=== PATIENT | male | born 1935 | race Caucasian/White ===

== ENCOUNTER 2017-03-08 14:02 | Inpatient (IN) | payer BC, OTHER ==
[~2017-03-08] VITALS: Ht 182.9 cm; Wt 84.4 kg
[2017-03-08] VITALS (19 sets, daily range): BP systolic 90–117; BP diastolic 50–75
--- NOTE | 2017-03-08 14:15 | NUR ---
BB CAREGIVER, PT BECAME COMBATIVE AND REFUSED TO GO TO DIALYSIS. A/O X 1. BREATHING EVEN AND UNLABORED. NO SOB. VITALS STABLE. SAFETY AND COMFORT MEASURES IN PLACE. AWAITING MD ORDERS.
[2017-03-08] MEDS ORDERED: HYDR-552 PO (15:12)
[2017-03-08] MEDS ORDERED: LORA0.5T PO (15:12)
[2017-03-08] MEDS ORDERED: VIT1TABL46 PO (15:12)
[2017-03-08] MEDS ORDERED: ACAR25TA2 PO (15:12)
[2017-03-08] MEDS ORDERED: LOVA20TA2 PO (15:12)
[2017-03-08] MEDS ORDERED: TAMS-12 PO (15:12)
[2017-03-08] MEDS ORDERED: METO25TA6 PO (15:12)
[2017-03-08] MEDS ORDERED: ASPI81TA2 PO (15:12)
--- NOTE | 2017-03-08 15:30 | NUR ---
NEW IV STARTED ON LFA, 20 G. BLOOD DRAWN AND SENT TO LAB.
[2017-03-08 15:38] LABS: BASOPHILS # (AUTO) 0.1 /CMM (0.0-0.2); EOSINOPHILS # (AUTO) 0.1 /CMM (0.0-0.7); EOSINOPHILS % (AUTO) 0.8 % (0.0-6.0); HEMATOCRIT 33 % (39-51); HEMOGLOBIN 10.5 g/dL (13.5-17.5); LYMPHOCYTES # (AUTO) 1.1 /CMM (0.8-4.8); LYMPHOCYTES % (AUTO) 17.3 % (20.0-44.0); MEAN CORPUSCULAR HEMOGLOBIN 30 PG (26.0-33.0); MEAN CORPUSCULAR HGB CONC 32 g/dl (31.0-36.0); MEAN CORPUSCULAR VOLUME 94 fL (80-96); MONOCYTES # (AUTO) 0.6 /CMM (0.1-1.30); MONOCYTES % (AUTO) 8.8 % (2.0-12.0); NEUTROPHILS # (AUTO) 4.4 /CMM (1.8-8.9); NEUTROPHILS % (AUTO) 72.1 % (43.0-81.0); PLATELET COUNT (AUTO) 135 /CMM (150-450); RDW COEFFICIENT OF VARIATION 21.1 (11.5-15.0); RED BLOOD CELL COUNT(AUTO) 3.51 MIL/uL (4.5-6.0); WHITE BLOOD COUNT (AUTO) 6.3 K/uL (4.3-11.0)
[2017-03-08 15:49] LABS: INR 1.06 (0.87-1.13)
[2017-03-08 15:54] LABS: TROPONIN I 0.221 ng/mL (0.00-0.056)
--- NOTE | 2017-03-08 15:55 | NUR ---
CONTINUOUS IMPROVEMENT SPECIALIST AT BEDSIDE.
[2017-03-08 15:58] LABS: ALANINE AMINOTRANSFERASE 11 U/L (12-78); ALBUMIN 2.7 g/dL (3.4-5.0); ALKALINE PHOSPHATASE 77 U/L (46-116); ASPARTATE AMINOTRANSFERASE 14 U/L (15-37); BILIRUBIN,DIRECT 0.1 mg/dL (0.0-0.2); BILIRUBIN,TOTAL 0.4 mg/dL (0.2-1.0); SODIUM SERUM 136 mmol/L (136-145); TOTAL PROTEIN, SERUM 6.2 g/dL (6.4-8.2)
[2017-03-08 15:59] LABS: CALCIUM, SERUM 8.7 mg/dL (8.5-10.1); CARBON DIOXIDE 28 mmol/L (21-32); CHLORIDE 98 mmol/L (98-107); CREATININE 4.9 mg/dL (0.6-1.3); GLUCOSE 121 mg/dL (74-106); UREA NITROGEN, BLOOD 35 mg/dL (7-18)
[2017-03-08] MEDS ORDERED: ASPIRIN 81 MG TAB.CHEW ONE (16:10)
[2017-03-08 16:12] LABS: ABG BASE EXCESS 0.9 mmol/L; ABG OXYGEN SATURATION 48.7 % (92.0-98.5); ABG PCO2 63.8 mmHg (35.0-45.0); ABG PH 7.274 (7.350-7.450); ABG PO2 30.2 mmHg (75.0-100.0); COHb 0.6 % (0.5-1.5); MetHb 0.9 % (0.0-1.5); SITE, ABG Left Radial; VENT MODE, BG 4L N/C
[2017-03-08] MEDS ORDERED: ASPIRIN 81 MG TAB.CHEW PO ONE (16:30)
[2017-03-08] MEDS ORDERED: NTG 50 MG/D5W250 ML BOTTL 250 ML IV ONE (16:30)
--- NOTE | 2017-03-08 16:30 | NUR ---
PT PLACED ON BIPAP PER MD ORDER. SETTINGS PRESCRIBED 24/08 RR 12 50%. ALARMS SET PER PROTOCOL AND AUDIBLE. BIPAP PLUGGED IN TO RED OUTLET. AMBU BAG AT BED SIDE. GEAR SHAVER SET UP OPERATOR AT BED SIDE. NO DISTRESS NOTED WILL CONTINUE TO MONITOR.
--- NOTE | 2017-03-08 16:34 | NUR ---
PT IS IN TOO MUCH PAIN, UNABLE TO STAY STILL FOR CT SCAN. ER WILL CALL WHEN READY.
--- NOTE | 2017-03-08 16:38 | NUR ---
RT NOTE PT PLACED ON BIPAP PER MD ORDER. SETTINGS PRESCRIBED 24/08 RR 12 50%. ALARMS SET PER PROTOCOL AND AUDIBLE. BIPAP PLUGGED IN TO RED OUTLET. AMBU BAG AT BED SIDE. ROBOTICS SPECIALIST AT BED SIDE. NO DISTRESS NOTED WILL CONTINUE TO MONITOR. Addendum: 03/08/17 at 1639 by DEANN MOSS RT Amended: Links added.
[2017-03-08] MEDS ORDERED: MIDAZOLAM HCL 2 MG/2ML VIAL IV ONE (17:00)
[2017-03-08] MEDS ORDERED: MIDAZOLAM HCL 2 MG/2ML VIAL ONE (17:16)
--- NOTE | 2017-03-08 17:23 | NUR ---
PATIENT MEDICATED PER MD ORDERS, THEN TAKEN TO CT VIA STRETCHER.
--- NOTE | 2017-03-08 17:37 | NUR ---
PATIENT RETURNED FROM CT IN STABLE CONDITION, HOWEVER UNABLE TO PERFORM CT D/T PATIENT STILL MOVING AROUND DESPITE MEDICATION. INFORMED.
--- NOTE | 2017-03-08 18:21 | NUR ---
NITRO DRIP NOT ADMINISTERED D/T LOW BP, DR. HERNANDEZ INFORMED AND AGREES TO HOLD AT THIS TIME.
--- NOTE | 2017-03-08 19:06 | NUR ---
CALLED DR DAY, ON THE PHONE WITH DR LAWSON
--- NOTE | 2017-03-08 19:12 | NUR ---
CALLED [facility] , [employer] REGIST[employer]AR WAS PAGED.
--- NOTE | 2017-03-08 19:24 | NUR ---
REPORT GIVEN TO YIN ABURTO FOR ADMISSION TO ICU.
--- NOTE | 2017-03-08 19:32 | NUR ---
PATIENT TRANSPORTED TO ICU, 251 VIA ACLS PROTOCOL FOR ADMISSION. RNYIN TO PROVIDE RASHEEDA.
--- NOTE | 2017-03-08 20:00 | NUR ---
government affairs fellow - pt admitted to icu for respiratory failure, pt on bipap, pt is hd pt missed hd today because he became combative and and started having sob. pt is altered, confused. pt is in sr/st, pt has generalized edema. will do abg. dr busby at bedside. pt voiding in diaper. pt has skin issues on the legs, wound consult ordered. pt has r chest wall hd cath and l forearm 20g. pt has caregiver viky [phone], and sister julio dpoa [phone]. will continue to monitor
[2017-03-08] MEDS ORDERED: DEXTROSE 50%-WATER 50 ML DISP.SYRIN IV PRN (20:30)
[2017-03-08] MEDS ORDERED: INSULIN REGULAR, HUMAN 100 UNIT/ML 3 ML VIAL SQ PRN (20:30)
[2017-03-08 20:33] LABS: ABG BASE EXCESS -2.5 mmol/L; ABG OXYGEN SATURATION 91.1 % (92.0-98.5); ABG PCO2 44.3 mmHg (35.0-45.0); ABG PH 7.339 (7.350-7.450); ABG PO2 68.8 mmHg (75.0-100.0); AaDO2 27.9 mmHg; COHb 0.6 % (0.5-1.5); MetHb 0.4 % (0.0-1.5); O2Hb 90.2 % (94.0-97.0); SITE, ABG Right Radial; VENT MODE, BG RA
[2017-03-08] MEDS ORDERED: FUROSEMIDE 20 MG/2 ML VIAL IV SCH (21:00)
[2017-03-08] MEDS: HEPARIN SODIUM, PORCINE 5000 UNITS/1 ML VIAL SQ SCH (21:20)
[2017-03-08] MEDS: ATORVASTATIN 10 MG TABLET PO SCH (21:22)
[2017-03-08] MEDS: PIPERACILLIN /TAZOBACTAM 2.25 G in IV D5W 50 ML IV SCH (21:22)
[2017-03-08] MEDS: PANTOPRAZOLE 40 MG TABLET.DR PO SCH (21:24)
[2017-03-08] MEDS: ASPIRIN 81 MG TAB.CHEW PO SCH (21:24)
[2017-03-08] MEDS: BLOOD SUGAR DIAGNOSTIC 1 EACH STRIP IN SCH (21:46)
[2017-03-08] MEDS ORDERED: TAMSULOSIN 0.4 MG CAP.SR.24H PO SCH (22:00)
--- NOTE | 2017-03-08 22:00 | NUR ---
rivero catheter inserted, clear norman urine out
[2017-03-08] MEDS: HYDROCODONE/APAP 5/325MG 1 EACH TABLET PO PRN (23:46)
[2017-03-09] VITALS (63 sets, daily range): BP systolic 74–101; BP diastolic 23–71
--- NOTE | 2017-03-09 | NUR ---
hd done 2L out. pt still alert, bp marginal
[2017-03-09 01:44] LABS: APPEARANCE,URINE CLOUDY (CLEAR); BILIRUBIN,URINE NEGATIVE (NEGATIVE); BLOOD, URINE NEGATIVE Ery/uL (NEGATIVE); COLOR,URINE DARK YELLO (YELLOW); KETONES,URINE NEGATIVE (NEGATIVE); LEUKOCYTE ESTERASE ,URINE NEGATIVE (NEGATIVE); NITRITE, URINE NEGATIVE (NEGATIVE); PROTEIN,URINE 2+ mg/dl (NEGATIVE); UGLUCOSE NEGATIVE (NEGATIVE); UROBILINOGEN,URINE 0.2 EU/dL (0.2)
[2017-03-09 01:50] LABS: BACTERIA,URINE Few /HPF (None Seen); RBC,URINE 0-2 /HPF (0-2); SQUAMOUS EPITHELIAL CELL,UR Few /HPF (None Seen); URINE AMORPHOUS URATE Many /HPF (None Seen)
--- NOTE | 2017-03-09 02:47 | NUR ---
dr busby called regarding pt low bp, he ordered midodrine 10 mg now and 5 mg bid. will carry out orders and continue to monitor
[2017-03-09] MEDS ORDERED: MIDODRINE HCL (5MG) 5 MG TABLET PO SCH (03:00)
[2017-03-09] MEDS ORDERED: MIDODRINE HCL (5MG) 5 MG TABLET PO ONE (03:00)
--- NOTE | 2017-03-09 04:00 | NUR ---
left upper arm 20g iv started, flushing well, patent
[2017-03-09 04:55] LABS: BASOPHILS % (AUTO) 0.5 % (0.0-2.0); EOSINOPHILS % (AUTO) 0.7 % (0.0-6.0); HEMATOCRIT 34 % (39-51); HEMOGLOBIN 10.9 g/dL (13.5-17.5); LYMPHOCYTES # (AUTO) 1.1 /CMM (0.8-4.8); MEAN CORPUSCULAR HEMOGLOBIN 31 PG (26.0-33.0); MEAN CORPUSCULAR HGB CONC 33 g/dl (31.0-36.0); MEAN CORPUSCULAR VOLUME 95 fL (80-96); MONOCYTES # (AUTO) 0.6 /CMM (0.1-1.30); MONOCYTES % (AUTO) 8.4 % (2.0-12.0); NEUTROPHILS # (AUTO) 5.3 /CMM (1.8-8.9); NEUTROPHILS % (AUTO) 74.4 % (43.0-81.0); PLATELET COUNT (AUTO) 110 /CMM (150-450); RDW COEFFICIENT OF VARIATION 21.2 (11.5-15.0); RED BLOOD CELL COUNT(AUTO) 3.52 MIL/uL (4.5-6.0)
[2017-03-09 05:03] LABS: INR 1.09 (0.87-1.13); PROTHROMBIN TIME 11.3 SECS (9.5-12.7)
[2017-03-09 05:04] LABS: ALANINE AMINOTRANSFERASE 14 U/L (12-78); ALBUMIN 2.5 g/dL (3.4-5.0); ALKALINE PHOSPHATASE 78 U/L (46-116); ASPARTATE AMINOTRANSFERASE 12 U/L (15-37); BILIRUBIN,TOTAL 0.6 mg/dL (0.2-1.0); CALCIUM, SERUM 8.6 mg/dL (8.5-10.1); CARBON DIOXIDE 25 mmol/L (21-32); CHLORIDE 101 mmol/L (98-107); CREATININE 4.8 mg/dL (0.6-1.3); GLUCOSE 122 mg/dL (74-106); POTASSIUM 4.2 mmol/L (3.5-5.1); SODIUM SERUM 138 mmol/L (136-145); TOTAL PROTEIN, SERUM 6.1 g/dL (6.4-8.2); UREA NITROGEN, BLOOD 35 mg/dL (7-18)
[2017-03-09] MEDS: PIPERACILLIN /TAZOBACTAM 2.25 G in IV D5W 50 ML IV SCH ×3 (05:20→21:09)
[2017-03-09] MEDS: HYDROCODONE/APAP 5/325MG 1 EACH TABLET PO PRN ×2 (06:30→12:25)
[2017-03-09] MEDS: BLOOD SUGAR DIAGNOSTIC 1 EACH STRIP IN SCH ×4 (08:21→21:37)
[2017-03-09] MEDS: ASPIRIN 81 MG TAB.CHEW PO SCH (08:22)
[2017-03-09] MEDS: PANTOPRAZOLE 40 MG TABLET.DR PO SCH (08:22)
[2017-03-09] MEDS: MIDODRINE HCL (5MG) 5 MG TABLET PO SCH ×2 (08:22→17:20)
[2017-03-09] MEDS: HEPARIN SODIUM, PORCINE 5000 UNITS/1 ML VIAL SQ SCH ×3 (08:24→21:09)
[2017-03-09] MEDS: INSULIN DETEMIR 100 UNIT/ML CARTRIDGE SQ SCH (08:25)
[2017-03-09 08:31] LABS: THYROID STIMULATING HORMONE 3.772 uIU/mL (0.358-3.74)
[2017-03-09 08:32] LABS: MAGNESIUM 2.5 mg/dL (1.8-2.4); PHOSPHORUS 6.3 mg/dL (2.5-4.9); TROPONIN I 0.16 ng/mL (0.00-0.056)
--- NOTE | 2017-03-09 12:00 | NUR ---
Wound care consult completed. Wound care performed per wound care nurse recommendations.
[2017-03-09] MEDS: CADEXOMER IODINE 40 GM TUBE TP SCH (12:20)
[2017-03-09] MEDS: SEVELAMER CARBONATE 800 MG TABLET PO SCH ×2 (12:26→17:19)
--- NOTE | 2017-03-09 12:49 | NUR ---
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 PT NOTED TO HAVE 4+ PITTING EDEMA TO TRUNK OF BODY, THIGHS AND ARMS WITH WEEPING EDEMA. LOWER LEGS ARE RED, WARM WITH WEEPING EDEMA AND OPEN AREAS, PRESENT ON ADMISSION. RECOMMENDATIONS MADE FOR SKIN PROTECTION AND WOUND CARE. IODOSORB GEL ORDERED BY MD FOR LOWER EXTREMITIES. ALL SKIN PROTECTION AND WOUND RECOMMENDATIONS DISCUSSED WITH NURSING STAFF. FIRST STEP MATTRESS ORDERED. WILL SEE PRN. MD IN AGREEMENT WITH PLAN OF CARE.
[2017-03-09] MEDS ORDERED: Z GUARD REMEDY 2 OZ OINT TP PRN (13:00)
[2017-03-09] MEDS ORDERED: HYDROGEL DRESSING 90 GM TUBE TP PRN (13:00)
[2017-03-09] MEDS ORDERED: ALBUMIN 25% 25 GM in PREMIX 1 EA IV ONE (14:00)
--- NOTE | 2017-03-09 14:10 | NUR ---
Thoracentesis completed. 1600 ml of clear yellow fluid obtained. Lung sounds clear bilat. CXR obtained.
--- NOTE | 2017-03-09 14:15 | NUR ---
HD initiated, albumin administered by hd nurse.
--- NOTE | 2017-03-09 14:40 | NUR ---
Pt. aox3, bp runs in 80th, positional, pt denies any symptoms of hypotension, md aware.
[2017-03-09] MEDS: HYDROGEL DRESSING 90 GM TUBE TP SCH (17:24)
[2017-03-09] MEDS: Z GUARD REMEDY 2 OZ OINT TP SCH (17:24)
--- NOTE | 2017-03-09 17:30 | NUR ---
HD completed, vss, 1800 ml off, pt placed on kci matrass, full bed/bath/ skin care.
--- NOTE | 2017-03-09 20:00 | NUR ---
FERRY TERMINAL SUPERVISOR - NOTES - PT RECEIVED IN BED, ASLEEP. PT IS IN SR/ST, WITH GENERALIZED WEEPING EDEMA. PT IS ON 2L NC. PT HAD HD TODAY 1800 ML OUT, AND A THORACENTESIS OF THE RIGHT LUNG 1600 ML OUT. PT IS ON ACCUCHECK ACHS. PT HAS LEFT FORE ARM 20G AND LEFT UPPER ARM 20G, AND RIGHT CHEST WALL CATHETER. MULTIPLE SKIN ISSUES NOTED, WOUND TREATMENT WILL BE DONE PER ORDER. WILL CONTINUE TO MONITOR
--- NOTE | 2017-03-09 20:20 | NUR ---
DR DAY CALLED REGARDING PT LOW BLOOD PRESSURE, PT BASELINE BP IS ON THE LOW SIDE, DR DAY ORDERED TO CHANGE DOSE OF MIDODRINE TO 10 MG
--- NOTE | 2017-03-09 21:00 | NUR ---
PT CONFUSED, TRYING TO GET OUT OF BED, KCI REMOVED TO PREVENT PT FROM FALLING, WILL PLACE PT ON ISOFLEX BED.
[2017-03-09] MEDS: ATORVASTATIN 10 MG TABLET PO SCH (21:08)
[2017-03-10] VITALS (26 sets, daily range): BP systolic 78–107; BP diastolic 44–73
--- NOTE | 2017-03-10 02:00 | NUR ---
PT PULLED OUT IV, AND WANTS TO GET OUT OF BED, EVEN THOUGH HE CANNOT WALK. PT IS CONFUSED. BLOOD SUGAR WAS 56, PT WAS GIVEN ORANGE JUICE AND CRANBERRY JUICE, NOW BLOOD SUGAR IS 82. 2 NEW IVS PLACED IN LEFT FOREARM 20G AND LEFT FOREARM 22G. PT GIVEN FULL BED BATH, ALL LINENS CHANGED, PT MOVED TO ISOFLEX BED TO PREVENT FALLS AND PROTECT FROM PRESSURE SORES.
[2017-03-10 04:37] LABS: EOSINOPHILS % (AUTO) 0.2 % (0.0-6.0); HEMATOCRIT 34 % (39-51); HEMOGLOBIN 10.9 g/dL (13.5-17.5); LYMPHOCYTES # (AUTO) 1.2 /CMM (0.8-4.8); LYMPHOCYTES % (AUTO) 17.5 % (20.0-44.0); MEAN CORPUSCULAR HEMOGLOBIN 31 PG (26.0-33.0); MEAN CORPUSCULAR HGB CONC 32 g/dl (31.0-36.0); MEAN CORPUSCULAR VOLUME 96 fL (80-96); MONOCYTES # (AUTO) 0.6 /CMM (0.1-1.30); MONOCYTES % (AUTO) 8.7 % (2.0-12.0); NEUTROPHILS # (AUTO) 4.9 /CMM (1.8-8.9); NEUTROPHILS % (AUTO) 73.6 % (43.0-81.0); PLATELET COUNT (AUTO) 120 /CMM (150-450); RDW COEFFICIENT OF VARIATION 22.4 (11.5-15.0); RED BLOOD CELL COUNT(AUTO) 3.51 MIL/uL (4.5-6.0); WHITE BLOOD COUNT (AUTO) 6.6 K/uL (4.3-11.0)
[2017-03-10 05:05] LABS: TROPONIN I 0.141 ng/mL (0.00-0.056)
[2017-03-10] MEDS: PIPERACILLIN /TAZOBACTAM 2.25 G in IV D5W 50 ML IV SCH ×2 (05:09→13:00)
[2017-03-10 05:11] LABS: ALANINE AMINOTRANSFERASE 18 U/L (12-78); ALBUMIN 2.8 g/dL (3.4-5.0); ALKALINE PHOSPHATASE 71 U/L (46-116); ASPARTATE AMINOTRANSFERASE 11 U/L (15-37); BILIRUBIN,TOTAL 0.6 mg/dL (0.2-1.0); CALCIUM, SERUM 8.9 mg/dL (8.5-10.1); CARBON DIOXIDE 29 mmol/L (21-32); CHLORIDE 105 mmol/L (98-107); CREATININE 4.2 mg/dL (0.6-1.3); GLUCOSE 75 mg/dL (74-106); MAGNESIUM 2.4 mg/dL (1.8-2.4); PHOSPHORUS 5.2 mg/dL (2.5-4.9); POTASSIUM 4.2 mmol/L (3.5-5.1); SODIUM SERUM 142 mmol/L (136-145); TOTAL PROTEIN, SERUM 6.2 g/dL (6.4-8.2); UREA NITROGEN, BLOOD 26 mg/dL (7-18)
[2017-03-10] MEDS: HYDROCODONE/APAP 5/325MG 1 EACH TABLET PO PRN ×2 (05:15→16:58)
[2017-03-10] MEDS: BLOOD SUGAR DIAGNOSTIC 1 EACH STRIP IN SCH ×3 (07:50→17:30)
--- NOTE | 2017-03-10 08:00 | NUR ---
MO AOX1, CONFUSED AND ANXIOUS AT TIMES. WAS ABLE TO TAKE MEDICATIONS WITH APPLE SOUSE, AND 100% OF BREAKFAST TRAY WITH MINIMAL HELP.
[2017-03-10] MEDS: PANTOPRAZOLE 40 MG TABLET.DR PO SCH (08:02)
[2017-03-10] MEDS: HEPARIN SODIUM, PORCINE 5000 UNITS/1 ML VIAL SQ SCH (08:03)
[2017-03-10] MEDS: SEVELAMER CARBONATE 800 MG TABLET PO SCH ×2 (08:03→13:00)
[2017-03-10] MEDS: ASPIRIN 81 MG TAB.CHEW PO SCH (08:03)
[2017-03-10] MEDS: INSULIN DETEMIR 100 UNIT/ML CARTRIDGE SQ SCH (08:04)
[2017-03-10] MEDS ORDERED: INSU100I19 SQ (09:00)
[2017-03-10] MEDS ORDERED: INSU100V28 SQ (09:00)
[2017-03-10] MEDS ORDERED: MIDODRINE HCL (5MG) 5 MG TABLET PO SCH (09:00)
[2017-03-10] MEDS ORDERED: SEVE800T PO (09:00)
--- NOTE | 2017-03-10 09:00 | NUR ---
DISCUSSED PT PROGRESS WITH MD. MEDINA TO D/C PT HOME TODAY.
[2017-03-10] MEDS ORDERED: CEPH-570 PO (09:01)
[2017-03-10] MEDS: CADEXOMER IODINE 40 GM TUBE TP SCH (09:45)
[2017-03-10] MEDS: Z GUARD REMEDY 2 OZ OINT TP SCH (09:46)
[2017-03-10] MEDS: HYDROGEL DRESSING 90 GM TUBE TP SCH (09:46)
--- NOTE | 2017-03-10 10:31 | NUR ---
SPRING UPDATED THAT PT WILL BE DISCHARGED TODAY.
[2017-03-10] MEDS ORDERED: OLANZAPINE 2.5 MG TABLET PO ONE (12:30)
[2017-03-10] MEDS ORDERED: OLANZAPINE 10 MG VIAL IM ONE (12:30)
--- NOTE | 2017-03-10 12:37 | NUR ---
PT'S CAREGIVER ON THE WAY, PT IS AGITATED AND AGGRESSIVE. PT. REASSURED CALMLY THAT HE IS BEING DISCHARGED. GOT OUT OF BED AND RIPPED ALL LINES OFF. SWINGING HIS FIST AT CHARGE NURSE AND RPIMARY RN. SERAFIN COBURN CALLED. BARB NOTIFIED ORDER FOR ZYPREXA OBTAINED. ZYPREXA 2.5 MG ADMINISTERED IM, LEFT SHOULDER.
--- NOTE | 2017-03-10 17:00 | NUR ---
PT IS MORE COOPERATIVE NOW, STILL REFUSING ALL MEDS EXCEPT PAIN MEDICATION. NORCO GIVEN PO IV D/C. PT ESCORTED TO THE CAR BY WHEELCHAIR. DISCHARGE INSTRUCTIONS AND EDUCATION PROVIDED TO SUPRIYA, CAREGIVER. BELONGINGS WITH PT. SPRING GIRLFRIEND AND CARMEN SISTER NOTIFIED.
== END 2017-03-10 17:10 | disposition home health service (06) | DRG 280 ==
LOC: EDBD 14:03 → ER 14:03 → ICU 17:50
PROVIDERS: ADMIT Internal Medicine; ATTEND Orthopaedic Surgery Sports Medicine
PROC: 5A09357 Assistance with Respiratory Ventilation, Less than 24 Consecutive Hours, Continuous Positive Airway Pressure (ICD-10-PCS; 2017-03-08)
PROC: 0W993ZZ Drainage of Right Pleural Cavity, Percutaneous Approach (ICD-10-PCS; principal; 2017-03-09)
PROC: 5A1D70Z Performance of Urinary Filtration, Intermittent, Less than 6 Hours Per Day (ICD-10-PCS; 2017-03-09)
DX: I13.2 Hypertensive heart and chronic kidney disease with heart failure and with stage 5 chronic kidney disease, or end stage renal disease (principal); I50.23 Acute on chronic systolic (congestive) heart failure; I21.4 Non-ST elevation (NSTEMI) myocardial infarction; G93.41 Metabolic encephalopathy; E87.2 Acidosis; J90 Pleural effusion, not elsewhere classified; I95.9 Hypotension, unspecified; J96.01 Acute respiratory failure with hypoxia; J96.02 Acute respiratory failure with hypercapnia; E11.22 Type 2 diabetes mellitus with diabetic chronic kidney disease; I42.0 Dilated cardiomyopathy; N18.6 End stage renal disease; L03.115 Cellulitis of right lower limb; L03.116 Cellulitis of left lower limb; D64.9 Anemia, unspecified; E78.5 Hyperlipidemia, unspecified; F03.90 Unspecified dementia, unspecified severity, without behavioral disturbance, psychotic disturbance, mood disturbance, and anxiety; Z87.891 Personal history of nicotine dependence; Z91.15 Patient's noncompliance with renal dialysis; Z99.2 Dependence on renal dialysis; N40.0 Benign prostatic hyperplasia without lower urinary tract symptoms; K59.00 Constipation, unspecified
CPT/HCPCS: 36415; 36600; 70450-TC; 71010-TC; 76942-TC; 80048-TC; 80053-TC; 80061-TC; 80076-TC; 81000-TC; 82306; 82728-TC; 82803-TC; 82962-TC; 83540-TC; 83735-TC; 84100-TC; 84439-TC; 84443-TC; 84484-TC; 85025-TC; 85610-TC; 85730-TC; 87081-TC; 90935-TC; 93307-TC; 99082-TC; A4216; A4606; A6248; A6253; A6403; J1644; J1815; J1940; J2250; J2543; J3490; J7060; P9047; Z7610